=== PATIENT | female | born 1995 | race Caucasian/White ===

== ENCOUNTER → 2017-06-22 | Outpatient (CLI) | payer OTHER ==
[2017-06-22 13:26] LABS: URINE APPEARANCE CLEAR (CLEAR); URINE BILIRUBIN NEG (NEG); URINE COLOR YELLOW; URINE NITRITE NEG (NEG); URINE PH 5.5 (4.5-7.5); URINE SPECIFIC GRAVITY 1.024 (1.000-1.030); UROBILINOGEN NEG (NEG)
[2017-06-22 13:34] LABS: MANUAL MICROSCOPIC REQUIRED? NO; REVIEW REQ? NO
== END | disposition home or self-care (01) ==
LOC: C.LAB1850 11:25
PROVIDERS: ATTEND Physician Assistant
DX: R39.9 Unspecified symptoms and signs involving the genitourinary system (principal)

== ENCOUNTER → 2017-06-27 | Outpatient (CLI) | payer OTHER ==
--- NOTE | 2017-06-27 15:47 | MAMMOGRAPHY REPORT ---
ULTRASOUND OF BOTH BREASTS: 06/27/2017 CLINICAL HISTORY: 21-year-old woman presents with a few month history of constant dull aching tendern ess in both breasts. There is also occasional stabbing pain through the left breast. No palpable ma ss, skin erythema or thickening, or nipple discharge. No known family history of breast cancer. COMPARISON: No prior exams were available for comparison. FINDINGS: Targeted ultrasound was performed in each breast in the areas of pain pointed out by the p atient (within the left 12:00 through 3:00 axes, and right 11:00 through 8:00 axes. In both breasts, sonographically normal tissue is seen without a suspicious solid or cystic mass. IMPRESSION: ACR BI-RADS CATEGORY 1: NEGATIVE There is no targeted sonographic evidence of malignancy or other abnormality in both breasts, mainly in the lateral aspect of the breasts, to explain the nonfocal constant mastalgia described by the pat iehilario. Conservative therapy with mineral supplements, and solids, hot compresses and evening primrose oil were discussed with the patient. Clinical follow-up is also recommended. Elly Mart M.D. ay/:06/27/2017 13:33:06 Plate Corrector: Dr. Elly Mart, [facility] letter sent: Normal 1/2 BI-RADS Code: ACR BI-RADS Category 1: Negative
== END | disposition home or self-care (01) ==
LOC: C.MAMM 12:59
PROVIDERS: ATTEND Physician Assistant
DX: Z12.31 Encounter for screening mammogram for malignant neoplasm of breast (principal)